=== PATIENT | female | born 1940 | race Two or more races ===

== ENCOUNTER 2025-02-01 17:36 | Inpatient (IN) | payer OTHER ==
[~2025-02-01] VITALS: Ht 149.9 cm; Wt 73.0 kg
[2025-02-01 18:47] LABS: Hematocrit 37.3 % (36.0-46.0); Hemoglobin 11.8 g/dL (12.2-16.2); Mean Corpuscular Hemoglobin 28.8 pg (28.0-32.0); Mean Corpuscular Volume 91.4 fL (80.0-100.0); Nucleated Red Blood Cells % 0.0 %
[2025-02-01 18:58] LABS: Chloride 101 mmol/L (98-107); Potassium 4.2 mmol/L (3.5-5.1); Sodium 141 mmol/L (136-145)
[2025-02-01 18:59] LABS: Anion Gap 8 (5-15); Calcium 9.5 mg/dL (8.7-10.4)
[2025-02-01 19:01] LABS: Carbon Dioxide 32 mmol/L (20-31)
[2025-02-01 19:04] LABS: BUN/Creatinine Ratio 10.9 (10.0-20.0); Blood Urea Nitrogen 11 mg/dL (9-23)
[2025-02-01] MEDS: fentaNYL CITRATE 100 MCG/2 ML VL IV ONE (19:04)
[2025-02-01 19:07] LABS: Glucose 132 mg/dL (74-106)
--- NOTE | 2025-02-01 19:31 | ED.PDOC ---
History of Present Illness HPI Comments This patient is a pleasant 84-year-old female who arrives the ED today for evaluation of left leg pain concerns status post ground level fall. Patient was going to a wedding when her grand children were attempted to help her to the vehicle utilizing a walker at which time, the patient fell directly onto her knees. Per one of the granddaughters, they heard a pop. Patient has exquisite tenderness on the left lower femur that the patient states extends up into her pelvis. Patient has some mild internal rotation that is difficult to assess due to a slight flexion of the leg. Distal neurovascularly intact. Vital signs were stable. Patient is a on Eliquis due to a left arm DVT that occurred approximately seven years ago. Chief Complaint: Fall Injury Time Seen by MD: 18:10 Reviewed Notes: Nurses Notes, Medications, Allergies Allergies: Coded Allergies: Sulfa Antibiotics (Verified Allergy, Unknown, 02/01/25) Information Source: Patient Mode of Arrival: Wheelchair Severity: Moderate Timing: Hours Duration: Since onset Prehospital treatment: None Past Medical History PAST MEDICAL HISTORY: Denies Surgical History: Denies all surgeries Family History Family History: Unknown Social History Smoker: Non-Smoker Alcohol: Denies ETOH Use Drugs: Denies Drug Use Lives In: Home, Assisted Care Constitutional: denies: chills, diaphoresis, fatigue, fever, malaise, sweats, weakness, others EENTM: denies: blurred vision, double vision, ear bleeding, ear discharge, ear drainage, ear pain, ear ringing, eye pain, eye redness, hearing loss, mouth pain, mouth swelling, nasal discharge, nose bleeding, nose congestion, nose pain, photophobia, tearing, throat pain, throat swelling, voice changes, others Respiratory: denies: cough, hemoptysis, orthopnea, SOB at rest, shortness of breath, SOB with excertion, stridor, wheezing, others Cardiovascular: denies: chest pain, dizzy spells, diaphoresis, Dyspnea on exertion, edema, irregular heart beat, left arm pain, lightheadedness, palpitations, PND, syncope, others Gastrointestinal: denies: abdomen distended, abdominal pain, blood streaked bowels, constipated, diarrhea, dysphagia, difficulty swallowing, hematemesis, melena, nausea, poor appetite, poor fluid intake, rectal bleeding, rectal pain, vomiting, others Genitourinary: denies: abnormal vagina bleeding, burning, dyspareunia, dysuria, flank pain, frequency, hematuria, incontinence, pain, , vagina discharge, urgency, others Neurological: denies: dizziness, fainting, headache, left sided numbness, left sided weakness, numbness, paresthesia, pre-existing deficit, right sided numbness, right sided weakness, seizure, speech problems, tingling, tremors, weakness, others Musculoskeletal: reports: others (Left leg and pelvic pain concerns); denies: back pain, gout, joint pain, joint swelling, muscle pain, muscle stiffness, neck pain Integumetry: denies: bruises, change in color, change in hair/nails, dryness, laceration, lesions, lumps, rash, wounds, others Allergic/Immunocompromised: denies: Difficulty Healing, Frequent Infections, Hives, Itching, others Hematologic/Lymphatic: denies: anemia, blood clots, easy bleeding, easy bruising, swollen glands, others Endocrine: denies: excessive hunger, excessive sweating, excessive thirst, excessive urination, flushing, intolerance to cold, intolerance to heat, unexplained weight gain, unexplained weight loss, others Psychiatric: denies: anxiety, bipolar disorder, depression, hopeless, panic disorder, schizophrenia, sleepless, suicidal, others All Other Systems: Reviewed and Negative (Comprehensive review of systems are negative unless stated in HPI) Physical Exam General Appearance: Moderate Distress (Due to left knee and leg pain.), Obese HEENT: Normal ENT Inspection, Pharynx Normal, TMs Normal Neck: Full Range of Motion, Non-Tender, Normal, Normal Inspection Respiratory: Chest Non-Tender, Lungs Clear, No Accessory Muscle Use, No Respiratory Distress, Normal Breath Sounds Cardiovascular: No Edema, No JVD, No Murmur, No Gallop, Normal Peripheral Pulses, Regular Rate/Rhythm Breast Exam: Deferred Gastrointestinal: No Organomegaly, Non Tender, No Pulsatile Mass, Normal Bowel Sounds, Soft Genitalia: Deferred Pelvic: Deferred Rectal: Deferred Extremities: Other (Exquisite tenderness to palpation throughout the left lower femur region extending into the knee. Localized edema noted. No ecchymosis. No contusion noted to the knee. Pain extends up into the left hip and pelvic region. No ecchymosis noted. Significant reduced range of motion. Patient can not extend leg.) Neurologic: Alert Cerebellar Function: NOT DONE Reflexes: NOT DONE Skin: Dry, Normal Color, Warm Lymphatic: No Adenopathy Was a procedure done? Was a procedure done?: No Differential Dx Considerations may include: fracture, dislocation, sprain, contusion, among others X-Ray, Labs, Meds, VS Vital Signs Date Time Temp Pulse Resp B/P (MAP) Pulse Ox O2 Delivery O2 Flow Rate FiO2 02/01/25 21:00 58 12 120/63 (82) 98 02/01/25 20:00 96.7 59 12 98/34 (55) 98 96.7 02/01/25 20:00 59 12 98 Nasal Cannula* 2 28 02/01/25 19:01 97.6 64 17 88/46 (60) 100 97.6 02/01/25 18:56 97 Nasal Cannula* 2 28 02/01/25 17:38 97.0 51 18 100/59 100 97.0 Lab Test 02/01/25 20:15 02/01/25 18:27 Range/Units Troponin I High Sensitivity < 3 L < 3 L </=34 ng/L White Blood Count 11.1 H 4.4-10.8 10^3/uL Red Blood Count 4.08 4.0-5.20 10^6/uL Hemoglobin 11.8 L 12.2-16.2 g/dL Hematocrit 37.3 36.0-46.0 % Mean Corpuscular Volume 91.4 80.0-100.0 fL Mean Corpuscular Hemoglobin 28.8 28.0-32.0 pg Mean Corpuscular Hemoglobin Concent 31.5 L 32.0-36.0 g/dL Red Cell Distribution Width 14.1 11.8-14.3 % Platelet Count 283 140-450 10^3/uL Mean Platelet Volume 8.8 6.9-10.8 fL Neutrophils (%) (Auto) 65.9 37.0-80.0 % Lymphocytes (%) (Auto) 23.2 10.0-50.0 % Monocytes (%) (Auto) 8.6 0.0-12.0 % Eosinophils (%) (Auto) 1.7 0.0-7.0 % Basophils (%) (Auto) 0.6 0.0-2.0 % Neutrophils # (Auto) 7.3 1.6-8.6 10 ^3/uL Lymphocytes # (Auto) 2.6 0.4-5.4 10 ^3/uL Monocytes # (Auto) 1.0 0-1.3 10 ^3/uL Eosinophils # (Auto) 0.2 0-0.8 10 ^3/uL Basophils # (Auto) 0.1 0-0.2 10 ^3/uL Nucleated Red Blood Cells 0.0 % Sodium Level 141 136-145 mmol/L Potassium Level 4.2 3.5-5.1 mmol/L Chloride Level 101 98-107 mmol/L Carbon Dioxide Level 32 H 20-31 mmol/L Anion Gap 8 5-15 Blood Urea Nitrogen 11 9-23 mg/dL Creatinine 1.01 0.550-1.02 mg/dL Glomerular Filtration Rate Calc 55 >90 mL/min BUN/Creatinine Ratio 10.9 10.0-20.0 Serum Glucose 132 H 74-106 mg/dL Calcium Level 9.5 8.7-10.4 mg/dL B-Type Natriuretic Peptide 51.46 0-100 pg/mL X-Ray, Labs, Meds, VS Comment All studies performed the ED were evaluated by me personally. Serum studies were unremarkable for any systemic concerns. CT of the left lower extremity revealed a comminuted oblique distal femoral fracture. Patient will be admitted for orthopedic management. Dr. Gauthier has been notified of the patient admission via text with description of injury. He responded with a request for x-rays as well as preop chest x-ray, EKG and preop labs. Time of 1ST Reevaluation: 21:28 Reevaluation 1ST: Improved Consultation: PCP, Surgery Patient Education/Counseling: Diagnosis, Treatment Family Education/Counseling: Diagnosis, Treatment SEPSIS Sepsis Screen Date sepsis recognized/suspect: Feb 01, 2025 Time Sepsis recognized/suspect: 1741 Recent Procedure: No On Antibiotic Therapy: No Respiratory Rate >20: No Heart Rate >90: No Temp<36 C (96.8 F) or >38.3 C: No SBP <90 or MAP <65 mmHG: No New Acute Mental Status Change: No Is the patient on CPAP, BIPAP,: No Physician Orders Heplock Iv (02/01/25 ) Electrocardigram (02/01/25 18:10) Continuous Ekg Monitoring 08,12,16,20,00,04 (02/01/25 18:10) Left Lower Extremity W/O Con (02/01/25 18:10) Pelvis Wo Contrast (02/01/25 18:10) L Femur Xray (02/01/25 21:30) L Knee 3v Xray (02/01/25 21:30) Electrocardigram (02/01/25 21:30) Prothrombin Time W/ Inr (02/01/25 21:30) Type And Screen (02/01/25 21:30) Chest Portable (02/01/25 21:30) Vital Signs Date Time Temp Pulse Resp B/P (MAP) Pulse Ox O2 Delivery O2 Flow Rate FiO2 02/01/25 21:00 58 12 120/63 (82) 98 02/01/25 20:00 96.7 59 12 98/34 (55) 98 96.7 02/01/25 20:00 59 12 98 Nasal Cannula* 2 28 02/01/25 19:01 97.6 64 17 88/46 (60) 100 97.6 02/01/25 18:56 97 Nasal Cannula* 2 28 02/01/25 17:38 97.0 51 18 100/59 100 97.0 Laboratory Tests Test 02/01/25 18:27 White Blood Count 11.1 10^3/uL (4.4-10.8) H Departure 1 Departure Time of Disposition: 21:29 Impression: Primary Impression: Closed comminuted intra-articular fracture of distal end of femur Disposition: ADMITTED INPATIENT Condition: Fair Discharged With: Self, Relative Critical Care Note Critical Care Time?: No Stability Stability form required: No Heart Score Heart Score: Heart Score Response (Comments) Value History N/A 0 EKG N/A 0 Age N/A 0 Risk Factors N/A 0 Troponin N/A 0 Total 0 I personally scribed for MADAY ALLEN PAC ([email or web address]) on 02/01/25 at 19:31. Electronically submitted by Yovani Clark ([email or web address]). MADAY ALLEN PAC Feb 01, 2025 19:31
[2025-02-01 20:00] VITALS: PULSE 59; RESP 12; O2SAT 98
--- NOTE | 2025-02-01 20:18 | DVH ---
History: Fall/trauma with pain Comparison Study: None Technique: Multidetector spiral CT of the pelvis was performed from iliac crests to pubic symphysis. 100 cc of intravenous contrast was administered during this examination. Portal venous imaging was obtained. Axial, coronal and sagittal multiplanar reformats were performed by the technologist on a separate workstation. Radiation Dose : CT Dose: CTDI volume is 12.69 mGy. Dose-length product is 420.06 mGy*cm Findings: Visualized bowel: Small bowel and colon are normal in caliber and distribution. The appendix is not visualized; however, no secondary findings of acute appendicitis identified. Ascites: Absent Lymphadenopathy: No pelvic or mesenteric lymphadenopathy. Pelvis Wall and Mesentery: Unremarkable. Pelvic Organs: Colonic diverticulosis. Musculoskeletal: No aggressive focal bony lesions, acute fractures or dislocation. Bladder: Unremarkable IMPRESSION: No acute pelvic finding.
--- NOTE | 2025-02-01 20:40 | DVH ---
INDICATION: Fall/trauma, pain COMPARISON: CT PELVIS WO CONTRAST on DOS: 02/01/25 TECHNIQUE: CT of the left femur was performed without contrast. Volume transverse images were obtaine d and reconstructed in multiple planes using bone and soft tissue algorithms. Radiation Dose Information: CT Dose: CTDI volume is 15.59 mGy. Dose-length product is 791.81 mGy*cm FINDINGS: Left total knee arthroplasty with patellar resurfacing. Highly comminuted oblique periprosthetic distal femoral fracture with half shafts width medial displa cement of the distal fragment, half shafts width posterior displacement of the distal fragment, and m ild apex anterior angulation. No additional fracture seen. IMPRESSION: Comminuted oblique periprosthetic distal femoral fracture. All CT scans at this medical facility are performed using dose modulation techniques as appropriate t o a performed exam including the following: Automated exposure control was utilized; adjustment of th e MA and/or KV according to patient size; and use of iterative reconstruction technique.
[2025-02-01 22:16] LABS: INR 1.08 (0.9-1.15); Prothrombin Time 11.4 sec (9.3-11.8)
--- NOTE | 2025-02-01 22:31 | DVH ---
CHEST RADIOGRAPH REASON FOR EXAM: Preop x-ray COMPARISON: None TECHNIQUE: One view of the chest is provided FINDINGS: The cardiomediastinal silhouette is within normal limits for technique. There is aortic ath erosclerosis. There is no focal airspace disease. There is no significant pleural effusion. No acute bony abnormality is identified. IMPRESSION: No radiographic evidence of acute cardiopulmonary process.
[2025-02-01 22:32] VITALS: O2SAT 98
[2025-02-01 22:45] LABS: Magnesium 1.8 mg/dL (1.6-2.6)
[2025-02-01 22:46] LABS: Cholesterol 183.0 mg/dL (< 200); HDL Cholesterol 49.0 mg/dL (40-59)
--- NOTE | 2025-02-01 22:59 | DVH ---
CLINICAL INDICATION: Fall/trauma, pain TECHNIQUE: XYXY L FEMUR XRAY Comparison: XY L KNEE 3V XRAY on DOS: 02/01/25, CT LEFT LOWER EXTREMITY W/O CON on DOS: 02/01/25 FINDINGS/IMPRESSION: : There is no evidence of acute fracture or dislocation. Left total knee arthroplasty with patellar resurfacing. Mildly displaced oblique or spiral type distal femoral metadiaphyseal fracture with a half shaft's wi th medial displacement of the distal fragments, half shaft with posterior displacement of the distal fragment, and mild apex anterior angulation.
--- NOTE | 2025-02-01 22:59 | DVH ---
CLINICAL INDICATION: Fall/trauma, pain. TECHNIQUE: XYXY L KNEE 3V XRAY Comparison: XY L FEMUR XRAY on DOS: 02/01/25, CT LEFT LOWER EXTREMITY W/O CON on DOS: 02/01/25 FINDINGS/IMPRESSION: : Left total knee arthroplasty with patellar resurfacing. Again noted is an oblique displaced periprosthetic distal femoral fracture.
[2025-02-01 23:03] LABS: Triglycerides 176.0 mg/dL (< 150)
[2025-02-01 23:47] LABS: INR 1.09 (0.9-1.15); Partial Thromboplastin Time 25.7 SEC (24.5-34.5); Prothrombin Time 11.5 sec (9.3-11.8)
[2025-02-02] VITALS (9 sets, daily range): BP systolic 109–144; BP diastolic 16–78; PULSE 78–104; RESP 16–20; TEMP 97.7–98.4; O2SAT 91–99
[2025-02-02] MEDS ORDERED: ACETAMINOPHEN 325 MG TAB PO PRN (00:15)
[2025-02-02] MEDS ORDERED: ONDANSETRON HCL 4 MG/2 ML VIAL IV PRN (00:15)
--- NOTE | 2025-02-02 00:19 | DVHHPRES ---
History of Present Illness Resident Creating Document: DULCE RODRIGUES RESIDENT History of Present Illness Jana Padilla is a 84-year-old female patient who presents to the ED with chief complaint of mechanical fall with no loss of consciousness and no head trauma, only secondary to bilateral lower limb weakness. Per patient she fell on her leg twisted the left knee and was not able to bear weight after fall. Patient has inability to bear weight prompted her visit to the ED. denies any other associated symptom. 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 Denies current tobacco, alcohol and other drug abuse. Allergies: Sulfas and ciprofloxacin Home medication: Eliquis, metoprolol, hydrocodone, [id number] mcg p.o. daily, Ropinirole, donepezil, aspirin Patient seen and examined at bedside. Currently has no new complaints. We will admit to telemetry for further evaluation Past Medical History Per HPI Past Surgical History Per HPI Family History Per HPI Past Social History Per HPI Review of Systems Review of Systems Per HPI Allergies: Coded Allergies: Sulfa Antibiotics (Verified Allergy, Unknown, 02/01/25) Medications Current Medications Medications Dose Ordered Sig/Carly Route Start Time Stop Time Status Last Admin Dose Admin Enoxaparin Sodium 70 mg Q12HR SC 02/02/25 10:00 UNV Patient Own Medication 1 DAILY PO 02/02/25 10:00 UNV Donepezil HCl 10 mg HS PO 02/02/25 22:00 UNV Exam Vital Signs Vital Signs Date Time Temp Pulse Resp B/P (MAP) Pulse Ox O2 Delivery O2 Flow Rate FiO2 02/01/25 23:00 59 12 114/48 (70) 98 02/01/25 20:00 96.7 96.7 02/01/25 20:00 Nasal Cannula* 2 28 Exam Patient lying in bed, in no acute distress General: Lucid, afebrile, mucosae are moist, pale skin and conjunctivae. Cardiovascular: Normal S1 and S2. No murmurs, gallops or rubs Respiratory: Normal ventilation mechanics. Clear lung sounds on auscultation Abdomen: Soft, nontender, no organomegaly, normal bowel sounds MSK/skin: Mobilizes 4 limbs, presents pain when moving left lower limb, but sensation and motor function is conserved. Skin is dry and warm Neurological: Oriented in 3 spheres. No motor no sensitive deficits. Pupils are isocoric and reactive Labs/Xrays Labs Test 02/01/25 23:19 02/01/25 20:15 02/01/25 18:27 Range/Units Prothrombin Time 11.5 9.3-11.8 sec Prothrombin Time INR 1.09 0.9-1.15 Activated Partial Thromboplast Time 25.7 24.5-34.5 SEC Troponin I High Sensitivity < 3 L </=34 ng/L White Blood Count 11.1 H 4.4-10.8 10^3/uL Red Blood Count 4.08 4.0-5.20 10^6/uL Hemoglobin 11.8 L 12.2-16.2 g/dL Hematocrit 37.3 36.0-46.0 % Mean Corpuscular Volume 91.4 80.0-100.0 fL Mean Corpuscular Hemoglobin 28.8 28.0-32.0 pg Mean Corpuscular Hemoglobin Concent 31.5 L 32.0-36.0 g/dL Red Cell Distribution Width 14.1 11.8-14.3 % Platelet Count 283 140-450 10^3/uL Mean Platelet Volume 8.8 6.9-10.8 fL Neutrophils (%) (Auto) 65.9 37.0-80.0 % Lymphocytes (%) (Auto) 23.2 10.0-50.0 % Monocytes (%) (Auto) 8.6 0.0-12.0 % Eosinophils (%) (Auto) 1.7 0.0-7.0 % Basophils (%) (Auto) 0.6 0.0-2.0 % Neutrophils # (Auto) 7.3 1.6-8.6 10 ^3/uL Lymphocytes # (Auto) 2.6 0.4-5.4 10 ^3/uL Monocytes # (Auto) 1.0 0-1.3 10 ^3/uL Eosinophils # (Auto) 0.2 0-0.8 10 ^3/uL Basophils # (Auto) 0.1 0-0.2 10 ^3/uL Nucleated Red Blood Cells 0.0 % Sodium Level 141 136-145 mmol/L Potassium Level 4.2 3.5-5.1 mmol/L Chloride Level 101 98-107 mmol/L Carbon Dioxide Level 32 H 20-31 mmol/L Anion Gap 8 5-15 Blood Urea Nitrogen 11 9-23 mg/dL Creatinine 1.01 0.550-1.02 mg/dL Glomerular Filtration Rate Calc 55 >90 mL/min BUN/Creatinine Ratio 10.9 10.0-20.0 Serum Glucose 132 H 74-106 mg/dL Hemoglobin A1c 5.0 <5.7 % A1C Calcium Level 9.5 8.7-10.4 mg/dL Phosphorus Level 2.8 2.4-5.1 mg/dL Magnesium Level 1.8 1.6-2.6 mg/dL B-Type Natriuretic Peptide 51.46 0-100 pg/mL Triglycerides Level 176 H < 150 mg/dL Cholesterol Level 183 < 200 mg/dL LDL Cholesterol 107 H < 100 mg/dL HDL Cholesterol 49 40-59 mg/dL Thyroid Stimulating Hormone (TSH) 0.26 L 0.55-4.78 uIU/mL SEPSIS Sepsis Screen Date sepsis recognized/suspect: Feb 01, 2025 Time Sepsis recognized/suspect: 1999 Recent Procedure: No On Antibiotic Therapy: No Respiratory Rate >20: No Heart Rate >90: No Temp<36 C (96.8 F) or >38.3 C: No SBP <90 or MAP <65 mmHG: Yes New Acute Mental Status Change: No Is the patient on CPAP, BIPAP,: No Physician Orders Heplock Iv (02/01/25 ) Electrocardigram (02/01/25 18:10) Continuous Ekg Monitoring 08,12,16,20,00,04 (02/01/25 18:10) Left Lower Extremity W/O Con (02/01/25 18:10) Pelvis Wo Contrast (02/01/25 18:10) L Femur Xray (02/01/25 21:30) L Knee 3v Xray (02/01/25 21:30) Electrocardigram (02/01/25 21:30) Type And Screen (02/01/25 21:30) Chest Portable (02/01/25 21:30) Obtain Consent For: (02/01/25 21:43) Obtain Consent For Anesthesia (02/01/25 21:43) Complete Blood Count (02/02/25 04:00) Basic Metabolic Panel (02/02/25 04:00) Vitamin D, 25-Hydroxy (02/01/25 21:41) Vitamin B12 (02/01/25 21:41) Urinalysis (02/01/25 21:41) Drug Screen (02/01/25 21:41) * Orthopedic Consult (02/01/25 23:45) Npo Except Ice Chips (02/01/25 23:45) Npo (Nothing By Mouth) Diet (02/01/25 Breakfast) Enoxaparin Sodium (Lovenox) (02/02/25 10:00) Patients Own Medication (02/02/25 10:00) Donepezil Tablet (Aricept Tablet) (02/02/25 22:00) Hepatic Panel (02/02/25 00:01) Admit (02/02/25 00:01) Code Status (02/02/25 00:01) Acetaminophen Tablet (Tylenol Tablet) (02/02/25 00:15) Ondansetron Hcl (Zofran) (02/02/25 00:15) Echo 2d Mode Cardiac Dop (02/02/25 00:01) Oxygen By Nasal Cannula (02/02/25 00:01) Stat Ekg For Chest Pain (02/02/25 00:01) Notify Of Changes From Base (02/02/25 00:01) Concrete Paver For 24 Hours (02/02/25 00:01) Emergency Dysrhythmia Protocol (02/02/25 00:01) Rhythm Strips Once Every Shift (02/02/25 00:01) Vital Signs Date Time Temp Pulse Resp B/P (MAP) Pulse Ox O2 Delivery O2 Flow Rate FiO2 02/01/25 23:00 59 12 114/48 (70) 98 02/01/25 22:00 55 12 114/35 (61) 95 02/01/25 21:00 58 12 120/63 (82) 98 02/01/25 20:00 96.7 59 12 98/34 (55) 98 96.7 02/01/25 20:00 59 12 98 Nasal Cannula* 2 28 02/01/25 19:01 97.6 64 17 88/46 (60) 100 97.6 02/01/25 18:56 97 Nasal Cannula* 2 28 02/01/25 17:38 97.0 51 18 100/59 100 97.0 Laboratory Tests Test 02/01/25 18:27 White Blood Count 11.1 10^3/uL (4.4-10.8) H Assessment/Plan Assessment/Plan ASSESSMENT Comminute distal femoral fracture Mechanical fall with no loss of consciousness Rule out cardiogenic presyncope Complicated UTI Ruled out pelvic fracture Paroxysmal atrial fibrillation (chads Vasc 5) secondary hypercoagulability state History of left upper limb DVT currently on Eliquis Chronic hypoxic respiratory failure 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 Discontinued metoprolol at this time Ordered echocardiogram Completed CT of pelvis and left lower limb which shows comminute oblique periprosthetic distal femoral fracture, no acute pelvic findings Consulted hub inventory specialist to evaluate the patient Optimize pain medication TSH was elevated, ordered free T4 and total T3. for now hold levothyroxine medication. Continue with ropinirole (POM) Patient is NPO, awaiting Orthopedics evaluation. Due to paroxysmal atrial fibrillation and history of DVT, patient is on therapeutic enoxaparin during admission. Discontinued apixaban. Obtain urine analysis which is compatible with UTI. Currently on empiric IV a ntibiotic (ceftriaxone). Ordered urine culture Goals of care discussed with patient for over 18 minutes: Full code status Discussed plan with Dr. Donahue, patient, family and nurses: We will admit patient to telemetry, ordered echocardiogram for preop clearance and to rule out cardiogenic causes of presyncope. Consulted Orthopedics, awaiting evaluation. Plan discussed with: Patient, Daughter, Son, Other (Nurses) My Orders Orders - DULCE RODRIGUES RESIDENT Procedure Category Date Status Time Complete Blood Count LAB 02/02/25 Transmitted 04:00 Basic Metabolic Panel LAB 02/02/25 Transmitted 04:00 Vitamin D, 25-Hydroxy LAB 02/01/25 In Process 21:41 Vitamin B12 LAB 02/01/25 In Process 21:41 Urinalysis LAB 02/01/25 Logged 21:41 Drug Screen LAB 02/01/25 Logged 21:41 * Orthopedic Consult CONS 02/01/25 Transmitted 23:45 Npo Except Ice Chips [facility] 02/01/25 In Process 23:45 Npo (Nothing By DIET 02/01/25 Transmitted Mouth) Diet Breakfast Enoxaparin Sodium [facility] 02/02/25 Logged (Lovenox) 10:00 Patients Own PHA 02/02/25 Logged Medication 10:00 Donepezil Tablet [facility] 02/02/25 Logged (Aricept Tablet) 22:00 Hepatic Panel LAB 02/02/25 Transmitted 00:01 Admit ADMIT 02/02/25 Transmitted 00:01 Code Status CODE 02/02/25 Transmitted 00:01 Acetaminophen Tablet [facility] 02/02/25 Transmitted (Tylenol Tablet) 00:15 Ondansetron Hcl PHA 02/02/25 Transmitted (Zofran) 00:15 Echo 2d Mode Cardiac US 02/02/25 Transmitted DOP 00:01 Oxygen By Nasal RT 02/02/25 Transmitted Cannula 00:01 Stat Ekg For Chest [facility] 02/02/25 Verified Pain 00:01 Notify Of Changes [facility] 02/02/25 Verified From Base 00:01 Concrete Paver For [facility] 02/02/25 Verified 24 Hours 00:01 Emergency Dysrhythmia [facility] 02/02/25 Verified Protocol 00:01 Rhythm Strips Once [facility] 02/02/25 Verified Every Shift 00:01 Date of Service: Feb 02, 2025 Billing Provider: CHEPE DONAHUE MD Common Visit Codes: [id number] INP/OBS CARE (HIGH) Secondary Visit Codes: [id number] CARE PLAN 30 MINUTES DULCE RODRIGUES RESIDENT Feb 02, 2025 00:19
[2025-02-02 00:47] LABS: Urine Budding Yeast FEW /hpf (None Seen); Urine Protein, UAD 2+ (Negative); Urine WBC Clumps PRESENT /hpf (None Seen)
[2025-02-02 01:31] LABS: Amphetamine Screen, Urine Neg (NEGATIVE); Phencyclidine Screen, Urine Neg (NEGATIVE)
[2025-02-02 01:33] LABS: Alanine Aminotransferase 13 U/L (7-40); Alkaline Phosphatase 86 U/L (46-116)
[2025-02-02 01:34] LABS: Albumin 3.2 g/dL (3.2-4.8)
[2025-02-02 01:37] LABS: Bilirubin, Direct < 0.1 mg/dL (<0.3); Bilirubin, Total 0.2 mg/dL (0.2-1.0); Total Protein 5.4 g/dL (5.7-8.2)
[2025-02-02 01:37] LABS: Barbiturate Scree,Urine Neg (NEGATIVE); Benzodiazephine Screen, Urine Neg (NEGATIVE); Cannabinoid Screen, Urine Neg (NEGATIVE); Cocaine Screen, Urine Neg (NEGATIVE); Opiate Scree,Urine Pos (NEGATIVE)
[2025-02-02 04:54] LABS: Hematocrit 29.7 % (36.0-46.0); Hemoglobin 9.8 g/dL (12.2-16.2); Mean Corpuscular Hemoglobin 29.7 pg (28.0-32.0); Mean Corpuscular Volume 90.0 fL (80.0-100.0); Nucleated Red Blood Cells % 0.1 %
[2025-02-02 05:00] LABS: Chloride 100 mmol/L (98-107); Potassium 3.7 mmol/L (3.5-5.1); Sodium 141 mmol/L (136-145)
[2025-02-02 05:01] LABS: Anion Gap 8 (5-15); Calcium 9.0 mg/dL (8.7-10.4)
[2025-02-02 05:06] LABS: BUN/Creatinine Ratio 15.8 (10.0-20.0); Blood Urea Nitrogen 15 mg/dL (9-23); Glucose 104 mg/dL (74-106)
[2025-02-02 05:22] LABS: Carbon Dioxide 33 mmol/L (20-31)
[2025-02-02] MEDS ORDERED: APIX5TAB PO (07:35)
[2025-02-02] MEDS ORDERED: HYDR-4798 PO (07:35)
[2025-02-02] MEDS ORDERED: LEVO25TA6 PO (07:35)
[2025-02-02] MEDS ORDERED: PATIENTS OWN MEDICATION PO SCH (10:00)
[2025-02-02] MEDS: ROPINIROLE 1 MG PO SCH (10:00)
[2025-02-02] MEDS: HYDROmorphone HCL 2 MG/ML VL/or syr IV PRN (10:33)
[2025-02-02] MEDS: ENOXAPARIN SOD 80 MG/0.8ML SYRINGE SC SCH (10:35)
[2025-02-02] MEDS: PANTOPRAZOLE 40 MG/10 ML VIAL INJ IV SCH (10:43)
--- NOTE | 2025-02-02 14:42 | DVHPNRES ---
Progress Note Date Seen: Feb 02, 2025 Resident Creating Document: DIANNE WHITE RESIDENT Medical Necessity Reason Pt with a Central, PICC or Fol: No Subjective Review of Systems 84-year-old female patient who presents to the ED with chief complaint of mechanical fall with no loss of consciousness and no head trauma, only secondary to bilateral lower limb weakness. Per patient she fell on her leg twisted the left knee and was not able to bear weight after fall. Patient has inability to bear weight prompted her visit to the ED. denies any other associated symptom. 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 Denies current tobacco, alcohol and other drug abuse. Allergies: Sulfas and ciprofloxacin Home medication: Eliquis, metoprolol, hydrocodone, [id number] mcg p.o. daily, Ropinirole, donepezil, aspirin Patient seen and examined at bedside. Currently has no new complaints. We will admit to telemetry for further evaluation Past Medical History Per HPI Past Surgical History Per HPI Family History Per HPI Past Social History Per HPI The patient was seen and examined at bedside. Overnight events were reviewed. The patient reports having severe pain,"worse than a child ". The son was at bedside, who was concerned regarding the red urine in the catheter. All the questions were answered at bedside. The patient is scheduled for ORIF tomorrow. Objective vital signs Vital Sign Date Time Temp Pulse Resp B/P (MAP) Pulse Ox O2 Delivery O2 Flow Rate FiO2 02/02/25 12:54 98.3 80 16 109/71 (84) 96 98.3 02/02/25 08:00 Room Air* 0 21 medications Current Medications Medications Dose Ordered Sig/Carly Route Start Time Stop Time Status Last Admin Dose Admin Enoxaparin Sodium 70 mg Q12HR SC 02/02/25 10:00 02/02/25 10:35 70 MG Donepezil HCl 10 mg HS PO 02/02/25 22:00 Acetaminophen 325 mg Q4HP PRN PO 02/02/25 00:15 Ondansetron HCl 4 mg Q4HP PRN IV 02/02/25 00:15 Patient Own Medication 1 DAILY PO 02/02/25 10:00 Hydromorphone HCl 0.25 mg Q4HPRN PRN IV 02/02/25 09:00 02/02/25 10:33 0.25 MG Pantoprazole Sodium 40 mg DAILY IV 02/02/25 10:00 02/02/25 10:43 40 MG Ceftriaxone Sodium 50 ml @ 100 mls/hr DAILY@09 IV 02/03/25 09:00 Examination Pt is lying on bed General Appearance: Alert, Oriented X3, Cooperative, Mild distress HEENT: Atraumatic, Mucous membranes moist/pink Respiratory: Clear to auscultation, Normal air movement, No added sounds Cardiovascular: Regular rate, Normal S1, Normal S2, No murmurs Abdominal/ : Active bowel sounds, Soft, no distention, no tenderness Extremities: No edema, Normal pulses, No tenderness/swelling, severe left hip tenderness with the both legs at 45. Skin: No Significant rash, except past surgical scars Neuro: Normal speech, sensorimotor deficits none Psych/Mental Status: Mental status NL, Mood NL Nurse was there as care transition coordinator during examination laboratory and microbiology Laboratory Tests 02/02/25 03:18 Test 02/02/25 03:18 Range/Units Serum Glucose 104 74-106 mg/dL Labs and/or images reviewed: Labs reviewed by me, Image(s) reviewed by me Problem List/Assessment/Plan Problem List/Assessment/Plan Comminute distal femoral fracture Mechanical fall with no loss of consciousness Ruled out pelvic fracture Completed CT of pelvis and left lower limb which shows comminute oblique periprosthetic distal femoral fracture, no acute pelvic findings Diabetes consult was appreciated. The patient is scheduled for or if tomorrow at 9:00 a.m. by Continue pain management Patient will be NPO after midnight Complicated UTI IV ceftriaxone. Urine culture pending Rule out cardiogenic presyncope Paroxysmal atrial fibrillation (chads Vasc 5) secondary hypercoagulability state History of left upper limb DVT currently on Eliquis Patient is monitored on telemetry, EKG: Sinus bradycardia, discontinued metoprolol at this time. Echocardiogram: Completed, results pending Due to paroxysmal atrial fibrillation and history of DVT, patient is on therapeutic enoxaparin during admission. Discontinued apixaban. Chronic hypoxic respiratory failure Post-polio syndrome on home oxygen (4L/min) Continue 4 L oxygen Hyperglycemia HbA1c 5 Monitor glucose levels Hypercholesterolemia Counseled on lifestyle modification Hypothyroidism Vitiligo Restless leg syndrome Continue with ropinirole (POM) GI prophylaxis: Pantoprazole DVT prophylaxis:Lovenox Diet: Cardiac, NPO from midnight. Goals of care discussed with the patient for more than 27 minutes: Full code status Case discussed with Dr. Luevano, patient and RN Plan discussed with: Patient, Other (RN) My Orders My Orders Orders - DIANNE WHITE RESIDENT Procedure Category Date Status Time Cardiac DIET 02/02/25 Transmitted Diet-2gna,Lofat,Lochol Breakfast Date of Service: Feb 02, 2025 Billing Provider: XIMENA LUEVANO MD Common Visit Codes: [id number] INP/OBS CARE(HIGH) DIANNE WHITE RESIDENT Feb 02, 2025 14:42 XIMENA LUEVANO MD Feb 04, 2025 10:22
--- NOTE | 2025-02-02 15:19 | DVHSR ---
APPROVED REPORT EXAM: Two-dimensional and M-mode echocardiogram with Doppler and color Doppler. Blood Pressure: 144/78 mmHg INDICATION Pre-Op RISK FACTORS Height: 4'11", Weight: 150 DIMENSIONS LVDd (3.8-5.7cm)LA (2D)3.1 (1.9-4.0cm)Aortic Root3.0 (2.0-3.7cm) LVDs (2.5-4.0cm)LA (MM) (1.9-4.0cm)Aortic Cusp Exc1.4 (1.5-2.0cm) EF (%) 57.0 (55-70%)Rt. Atrium3.1 (1.9-4.0cm)Asc. Aorta cm Mitral Valve MitralMitral Stenosis E wave0.57m/sMV Mean GR.mmHg A wave0.95m/sMV Peak GR.mmHg E/A ratio0.62D MVAcm2 DECEL [id number] 1/2 Timems Aortic Valve Aortic ValveAortic Stenosis V11.26m/Yael Mean GR.5mmHg V21.71m/Yael Peak GR.12mmHg LVOT Diameter1.6 (1.8-2.4cm)Doppler AVA1.48cm2 Tricuspid Valve TR Velocity2.88m/s [id number] Other Information Quality : Technically LimitedRhythm : Technically limited study due to body habitus and patient position. Conclusion Study. Sinus rhythm. Off axis view. Mild concentric LVH. Septal hypertrophy. Valves are normal. Left ventricular function is preserved at 65% with normal RV function. Dopplers unremarkable. RVSP at 36 mmHg No pericardial effusion masses or vegetations.
[2025-02-02] MEDS: DONEPEZIL HYDROCHLORIDE 5 MG TAB PO SCH (21:53)
[2025-02-03] VITALS (10 sets, daily range): BP systolic 108–140; BP diastolic 55–87; PULSE 78–134; RESP 16–20; TEMP 97.6–98.6; O2SAT 92–100
[2025-02-03] MEDS ORDERED: DONE1TAB88 PO (05:11)
[2025-02-03] MEDS ORDERED: OMEP20TA PO (05:12)
[2025-02-03] MEDS ORDERED: APIX5TAB PO (05:12)
[2025-02-03] MEDS ORDERED: ROPI1TAB78 PO (05:13)
[2025-02-03] MEDS ORDERED: LEVO125T7 PO (05:15)
[2025-02-03] MEDS ORDERED: ASPI1TAB19 PO (05:15)
[2025-02-03] MEDS ORDERED: METO25TA5 PO (05:15)
[2025-02-03] MEDS ORDERED: GABA-1254 GT (05:15)
[2025-02-03 08:04] LABS: Hematocrit 28.3 % (36.0-46.0); Hemoglobin 9.3 g/dL (12.2-16.2); Mean Corpuscular Hemoglobin 29.9 pg (28.0-32.0); Mean Corpuscular Volume 90.6 fL (80.0-100.0); Nucleated Red Blood Cells % 0.1 %
[2025-02-03 08:11] LABS: Anion Gap 8 (5-15); Chloride 101 mmol/L (98-107); Potassium 4.3 mmol/L (3.5-5.1); Sodium 141 mmol/L (136-145)
[2025-02-03 08:17] LABS: Calcium 8.6 mg/dL (8.7-10.4); Carbon Dioxide 32 mmol/L (20-31)
[2025-02-03 08:18] LABS: BUN/Creatinine Ratio 16.0 (10.0-20.0); Blood Urea Nitrogen 13 mg/dL (9-23); Glucose 104 mg/dL (74-106)
[2025-02-03] MEDS ORDERED: LIDOCAINE 1% INJ PF 5ML AMP ONE (12:04)
[2025-02-03] MEDS ORDERED: PROPOFOL 10 MG/ML 20 ML IV ONE (12:04)
[2025-02-03] MEDS ORDERED: ONDANSETRON HCL 4 MG/2 ML VIAL ONE (12:04)
[2025-02-03] MEDS ORDERED: KETOROLAC TROMETH 30 MG/ML 1ML VIAL ONE (12:04)
[2025-02-03] MEDS ORDERED: GLYCOPYRROLATE 0.2 MG/ML 1ML VIAL ONE (12:04)
[2025-02-03] MEDS ORDERED: BUPIVACAINE/DEXTROSE MPF 0.75% 2 ML AMP IT ONE (12:47)
[2025-02-03] MEDS ORDERED: CELECOXIB 100 MG CAP PO ONE (13:15)
[2025-02-03] MEDS ORDERED: ACETAMINOPHEN IV 1000 MG/100ML (10MG/ML) IV ONE (13:15)
[2025-02-03] MEDS ORDERED: GABAPENTIN 300 MG CAP PO ONE (13:15)
[2025-02-03] MEDS ORDERED: ROPIVACAINE 0.5% (5MG/ML) 20ML AMPULE IJ ONE (13:28)
[2025-02-03] MEDS: ceFAZolin 2 GM/D5W50ml 50 ML IV ONE (13:46)
[2025-02-03] MEDS ORDERED: ESMOLOL HCL 10 ML IV ONE (14:08)
--- NOTE | 2025-02-03 15:09 | DVHOP2 ---
Discharge Orders Discharge Orders DISCHARGE WHEN CRITERIA MET DISCHARGE WHEN CRITERIA MET. Operative Rep- Outpatient Operative Report PRE-OP DIAGNOSIS: LEFT PERIPROSTHETIC DISTAL FEMUR FRACTURE POST-OP DIAGNOSIS: SAME [place] protocol followed: No ESTIMATED BLOOD LOSS: 25 CC PROCEDURE: OPEN REDUCTION INTERNAL FIXATION OF LEFT PERIPROSTHETIC DISTAL FEMUR FRACTURE STRESS RADIOGRAPHS OF THE LEFT KNEE FLUOROSCOPIC STRESS RADIOGRAPHS OF THE LEFT FEMUR FLUOROSCOPIC STRESS RADIOGRAPHS OF THE LEFT HIP FLUOROSCOPIC SURGEON/ROOM SERVICE FOOD SERVER: Raffaele lindsey ANESTHESIA: truss driver helper INFORMED CONSENT: Informed Consent: Discussed all inherent risks, complications, and alternatives treatments with the patient. Patient has agreed to proceed with the procedure. I have reviewed all pre-operative assessments including Labs, EKGs, and radiographic images that has been performed. Patient is an appropriate candidate for the outpatient surgical center procedure. THE PATIENT IS EDUCATED ON THE RISKS AND BENEFITS OF SURGICAL AND NONSURGICAL TREATMENT OF THE PATIENT HAS A PERIPROSTHETIC FRACTURE WHICH INVOLVES THE JOINT THE PATIENT HAS A CR FEMUR BASED ON THESE PARAMETERS THE PATIENT IS EDUCATED ON THE RISKS AND BENEFITS OF SURGICAL AND NONSURGICAL TREATMENT WE DID HAVE A DISCUSSION WITH THE PATIENT REGARDING A DISTAL FEMORAL REPLACEMENT WITH A WAS A 0 VERSUS OPEN REDUCTION INTERNAL FIXATION OF THE FRACTURE OF THE PATIENT IS AWARE OF THE RISKS WITH THE SURGICAL FIXATION OF THE LEFT DISTAL FEMUR THE PATIENT UNDERSTANDS THE GOAL OF THE OF THE LEFT DISTAL FEMUR BASED ON THESE PARAMETERS THE PATIENT UNDERSTANDS THE RISKS OF WITH SURGICAL PROCEDURE AND OPTED FOR SURGICAL FIXATION WITH A RETROGRADE NAILING OF THE PATIENT IS SEEN IN THE PREOPERATIVE HOLDING AREA OF THE LEFT LOWER EXTREMITY WAS MARKED THE PATIENT WAS BROUGHT TO OPERATIVE SUITE GENERAL ANESTHESIA WAS THEN INDUCED TIME-OUT TO HOSPITAL PROTOCOL THE LEFT LOWER EXTREMITY WAS PREPPED AND DRAPED IN THE STANDARD FASHION ANCEF WAS GIVEN FOR INFECTION PROPHYLAXIS TXA WAS GIVEN FOR BLEEDING PROPHYLAXIS A [id number] CLAMP WAS THEN USED WITH THE FRACTURE ON TRACTION REDUCTION CHECKING AP AND LATERAL X-RAY THERE WAS SIGNIFICANT COMMINUTION NOTED ON AN AP ONCE I WAS THEN NOTED THE OPENING GUIDEWIRE WAS CHECKED ON AN AP AND LATERAL X-RAY OF THE PATELLAR TENDON BEING SPLIT THE OPENING GUIDEWIRE WAS THEN PLACED ONCE IT WAS THEN DONE A THE GUIDE BALL-TIPPED GUIDEWIRE WITH TRACTION WITH A [id number] JULIA TONG CHECKING AP AND LATERAL X-RAY WITH TRACTION LENGTH REDUCTION IN AP AND LATERAL X-RAY WAS THEN APPROPRIATELY MEASURED A 12 X 340 MM NAIL WAS THEN PLACED IN THE APPROPRIATE POSITION ONCE I WAS THEN CHECKED WITH THE APPROPRIATE POSITION AND LOCATION OF THE NAIL IN THE APPROPRIATE MANNER AND POSITIONING THE 12 X 340 MM NAIL WAS THEN PLACED THEN 4 DISTAL SCREWS WERE THEN PLACED WITH A GUIDED TECHNIQUE IN THE APPROPRIATE MANNER TO GET MAXIMUM FIXATION WE DO REALIZE THAT THE SCREW THAT WAS GOING MEDIAL TO LATERAL AND THE OBLIQUE SCREW WAS SLIGHTLY LONGER HOWEVER THE PURCHASE WAS ADEQUATE AND I DID NOT WANT TO REMOVE THE PURCHASE LOSING FIXATION IN THE MANNER AND SPACE THEREFORE IT WAS LEFT IN THE APPROPRIATE POSITION 1 PROX IMAL INTERLOCK WITH A IN A PERFECT [facility] TECHNIQUE WAS THEN PLACED AP AND LATERAL X-RAY SHOWED FRACTURE REDUCTION TO BE ACCEPTABLE ALIGNMENT BASED ON THE SIGNIFICANT COMMINUTION STRESS RADIOGRAPHS OF THE LEFT KNEE SHOWED FRACTURE REDUCTION TO BE APPROPRIATE STRESS RADIOGRAPHS OF THE LEFT FEMUR SHOW OF THE FRACTURE ON THE LATERAL X-RAY TO BE APPROPRIATE WITH THE CHURCH OF THE POSTERIOR CORTEX A STRESS RADIOGRAPHS OF THE LEFT HIP DID NOT SHOW ANY INTRA- ARTICULAR FRACTURES OR FEMORAL NECK FRACTURE WAS APPROPRIATE FRACTURE LENGTH AND SCREW FIXATION WAS THEN NOTED ON THE PATIENT'S EYE WOUNDS WERE THEN IRRIGATED CUSTOMIZED SALINE AND THEN CLOSED WITH 0 VICRYL 2-0 VICRYL NAYE. THE PATIENT WILL BE NONWEIGHTBEARING ON THE LEFT LOWER EXTREMITY FULL RANGE OF MOTION OF THE KNEE THE PATIENT WILL FOLLOW UP IN APPROXIMATELY 2 WEEKS' TIME THE PATIENT CAN GO TOE-TOUCH WEIGHT-BEARING OF THE 6 WEEK MADAY PT OT OUT OF BED DAILY FOLLOW UP IN 2 WEEKS' TIME RAFFAELE CODY MD Feb 03, 2025 15:09
[2025-02-03] MEDS ORDERED: hydrALAZINE HCL 20 MG/ML VL IV PRN (15:45)
[2025-02-03] MEDS ORDERED: NALOXONE HCL 0.4 MG/ML VIAL IV PRN (15:45)
[2025-02-03] MEDS ORDERED: HYDROmorphone HCL 2 MG/ML VL/or syr IV PRN (15:45)
[2025-02-03] MEDS ORDERED: fentaNYL CITRATE 100 MCG/2 ML VL IV PRN (15:45)
[2025-02-03] MEDS ORDERED: ONDANSETRON HCL 4 MG/2 ML VIAL IV PRN (15:45)
[2025-02-03] MEDS ORDERED: FLUMAZENIL 0.1 MG/ML INJ 10ML MDV IV PRN (15:45)
--- NOTE | 2025-02-03 16:15 | DVHPNRES ---
Progress Note Date Seen: Feb 03, 2025 Resident Creating Document: REINALDO ARAUJO Medical Necessity Reason Pt with a Central, PICC or Fol: Yes The following are medically ne: Cervantes Catheter Subjective Review of Systems 84-year-old female patient who presents to the ED with chief complaint of mechanical fall with no loss of consciousness and no head trauma, only secondary to bilateral lower limb weakness. Per patient she fell on her leg twisted the left knee and was not able to bear weight after fall. Patient has inability to bear weight prompted her visit to the ED. denies any other associated symptom. 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 Denies current tobacco, alcohol and other drug abuse. Allergies: Sulfas and ciprofloxacin Home medication: Eliquis, metoprolol, hydrocodone, [id number] mcg p.o. daily, Ropinirole, donepezil, aspirin Patient seen at bedside. Patient is being transferred to OR for surgery. Review of Systems: HEENT:Normal, CVS:Normal, RESPIRATORY:Normal, GI:Normal, :Normal, MSK:Normal, NEURO:Normal Objective vital signs Vital Sign Date Time Temp Pulse Resp B/P (MAP) Pulse Ox O2 Delivery O2 Flow Rate FiO2 02/03/25 09:35 110 16 135/55 02/03/25 09:00 98.1 100 98.1 02/03/25 08:10 Room Air* 0 21 Total Intake and Output 02/02/25 02/02/25 02/03/25 15:00 23:00 07:00 Intake Total 50 ml 850 ml 300 ml Output Total 250 ml 200 ml Balance 50 ml 600 ml 100 ml medications Current Medications Medications Dose Ordered Sig/Carly Route Start Time Stop Time Status Last Admin Dose Admin Enoxaparin Sodium 70 mg Q12HR SC 02/02/25 10:00 02/02/25 10:35 70 MG Donepezil HCl 10 mg HS PO 02/02/25 22:00 02/02/25 21:53 10 MG Acetaminophen 325 mg Q4HP PRN PO 02/02/25 00:15 Ondansetron HCl 4 mg Q4HP PRN IV 02/02/25 00:15 Patient Own Medication 1 DAILY PO 02/02/25 10:00 Hydromorphone HCl 0.25 mg Q4HPRN PRN IV 02/02/25 09:00 02/03/25 09:35 0.25 MG Pantoprazole Sodium 40 mg DAILY IV 02/02/25 10:00 02/03/25 09:25 40 MG Cefazolin Sodium 50 ml @ 100 mls/hr Q8HR IV 02/03/25 14:00 Naloxone HCl 0.4 mg Q10M PRN IV 02/03/25 15:45 02/03/25 16:06 Hydralazine HCl 5 mg Q10M PRN IV 02/03/25 15:45 02/03/25 16:36 Ephedrine Sulfate 10 mg Q10M PRN IV 02/03/25 15:45 02/03/25 16:26 Hydromorphone HCl 0.5 mg Q10M PRN IV 02/03/25 15:45 02/03/25 16:26 Examination General Appearance: Alert, Oriented X3, Cooperative, No acute distress HEENT: Atraumatic, PERRLA, EOMI, Mucous membrane moist/pink Respiratory: Clear to auscultation, Normal air movement Cardiovascular: Regular rate, Normal S1, Normal S2, No murmurs, no chest wall tenderness Abdominal: Tenderness in left hip Extremities: No clubbing, No cyanosis, No edema, Normal pulses, No tenderness/swelling Skin: No rashes, No breakdown, No significant lesion Neuro: Normal gait, Normal speech, Strength at 5/5 X4 ext, Normal tone, Sensation intact, Cranial nerves 3-12 NL, Reflexes 2+ Psych/Mental Status: Mental status NL, Mood NL laboratory and microbiology Laboratory Tests 02/03/25 07:17 Test 02/03/25 07:17 Range/Units Serum Glucose 104 74-106 mg/dL Microbiology Date/Time Source Procedure Growth Status 02/01/25 23:59 Urine - Cervantes Port Urine Culture - Preliminary Resulted Problem List/Assessment/Plan Problem List/Assessment/Plan Communited distal femoral fracture Mechanical fall with no loss of consciousness Ruled out pelvic fracture Completed CT of pelvis and left lower limb which shows comminute oblique periprosthetic distal femoral fracture, no acute pelvic findings The patient is scheduled for surgery today by Continue pain management Complicated UTI IV ceftriaxone. Urine culture pending Rule out cardiogenic presyncope Paroxysmal atrial fibrillation (chads Vasc 5) secondary hypercoagulability state History of left upper limb DVT currently on Eliquis Patient is monitored on telemetry, EKG: Sinus bradycardia, discontinued metoprolol at this time. Due to paroxysmal atrial fibrillation and history of DVT, patient is on therapeutic enoxaparin during admission. Discontinued apixaban. Chronic hypoxic respiratory failure Post-polio syndrome on home oxygen (4L/min) Continue 4 L oxygen Hyperglycemia Dyslipidemia Counseled on lifestyle modification Hypothyroidism Vitiligo Restless leg syndrome Continue with ropinirole (POM) Plan discussed with Dr. Jennings Plan discussed with patient. Plan discussed with: Patient Date of Service: Feb 03, 2025 Billing Provider: MALINA JENNINGS MD Common Visit Codes: [id number] INP/OBS CARE(HIGH) REINALDO ARAUJO RESIDENT Feb 03, 2025 16:03 MALINA JENNINGS MD Feb 11, 2025 20:25
--- NOTE | 2025-02-03 18:56 | DVH ---
XY C ARM FLUOROSCOPY UP TO 60MIN INDICATION: ORIF LEFT DISTAL FEMUR TECHNIQUE: Intraoperative fluoroscopic images were obtained Total fluoroscopic time 1 minutes and 8 seconds COMPARISON: None FINDINGS: Successful intraoperative fluoroscopic guidance. IMPRESSION: 1. Successful intraoperative fluoroscopic guidance and please follow up with surgical report.
[2025-02-03] MEDS: ceFAZolin 1GM/50ML 50 ML IV SCH (21:12)
[2025-02-04] VITALS (7 sets, daily range): BP systolic 115–133; BP diastolic 52–82; PULSE 61–111; RESP 16–18; TEMP 97.5–98.1; O2SAT 65–98
[2025-02-04 07:02] LABS: Hematocrit 25.1 % (36.0-46.0); Hemoglobin 8.4 g/dL (12.2-16.2); Mean Corpuscular Hemoglobin 30.3 pg (28.0-32.0); Mean Corpuscular Volume 91.0 fL (80.0-100.0); Nucleated Red Blood Cells % 0.0 %
[2025-02-04 07:22] LABS: Alanine Aminotransferase 10 U/L (7-40); Albumin 3.1 g/dL (3.2-4.8); Alkaline Phosphatase 72 U/L (46-116); Anion Gap 8 (5-15); BUN/Creatinine Ratio 18.8 (10.0-20.0); Blood Urea Nitrogen 18 mg/dL (9-23); Calcium 8.4 mg/dL (8.7-10.4); Carbon Dioxide 31 mmol/L (20-31); Chloride 102 mmol/L (98-107); Glucose 153 mg/dL (74-106); Potassium 4.8 mmol/L (3.5-5.1); Sodium 141 mmol/L (136-145); Total Protein 5.3 g/dL (5.7-8.2)
[2025-02-04 07:33] LABS: Bilirubin, Total 0.3 mg/dL (0.2-1.0)
--- NOTE | 2025-02-04 08:13 | DVHPN2 ---
Progress Note Date Seen: Feb 04, 2025 Medical Necessity Reason Pt with a Central, PICC or Fol: Yes The following are medically ne: Cervantes Catheter Subjective Patient reports: No new complaints Objective vital signs Vital Sign Date Time Temp Pulse Resp B/P (MAP) Pulse Ox O2 Delivery O2 Flow Rate FiO2 02/04/25 05:00 98.0 108 17 117/66 (83) 97 98.0 02/03/25 20:00 Nasal Cannula* 2 28 Total Intake and Output 02/03/25 02/03/25 02/04/25 15:00 23:00 07:00 Intake Total 150 ml 150 ml 170 ml Output Total 200 ml 100 ml Balance 150 ml -50 ml 70 ml medications Current Medications Medications Dose Ordered Sig/Carly Route Start Time Stop Time Status Last Admin Dose Admin Enoxaparin Sodium 70 mg Q12HR SC 02/02/25 10:00 02/03/25 21:11 70 MG Donepezil HCl 10 mg HS PO 02/02/25 22:00 02/03/25 21:11 10 MG Acetaminophen 325 mg Q4HP PRN PO 02/02/25 00:15 Ondansetron HCl 4 mg Q4HP PRN IV 02/02/25 00:15 Patient Own Medication 1 DAILY PO 02/02/25 10:00 Hydromorphone HCl 0.25 mg Q4HPRN PRN IV 02/02/25 09:00 02/03/25 20:12 0.25 MG Pantoprazole Sodium 40 mg DAILY IV 02/02/25 10:00 02/03/25 09:25 40 MG Cefazolin Sodium 50 ml @ 100 mls/hr Q8HR IV 02/03/25 14:00 02/04/25 05:52 100 MLS/HR Examination: GENERAL:Normal, MSK:Abnormal laboratory and microbiology Laboratory Tests 02/04/25 06:29 Test 02/04/25 06:29 Range/Units Serum Glucose 153 H 74-106 mg/dL Microbiology Date/Time Source Procedure Growth Status 02/01/25 23:59 Urine - [facility] [place] Urine Culture - Preliminary Resulted Problem List/Assessment/Plan Problem List/Assessment/Plan 84 year old female who is s/p distal femur ORIF POD 1 1. Pain control 2. DVT ppx 3. Aquacel dressing to remain in place for 2 weeks 4. Physical therapy 5. NWB LLE 6. Plan for follow up in [address] Gauthier at [facility] ortho clinic 7. clear for discharge from orthopedic standpoint Plan discussed with: Patient My Orders My Orders Orders - ZAMZAM SPRAGUE NP Procedure Category Date Status Time Weight-Bearing JOSE 02/03/25 In Process Restrictions 12:16 Cardiac DIET 02/03/25 Transmitted Diet-2gna,Lofat,Lochol Lunch Cefazolin 1gm/50ml PHA 02/03/25 In Process (Ancef) 14:00 Date of Service: Feb 04, 2025 Billing Provider: GAB GAUTHIER MD Common Visit Codes: NOT BILLABLE ZAMZAM SPRAGUE NP Feb 04, 2025 08:13
--- NOTE | 2025-02-04 14:33 | DVHDSRES ---
Discharge Summary Date of Admission Resident Creating Document: REINALDO ARAUJO RESIDENT Feb 02, 2025 at 00:01 Date of Discharge: Feb 04, 2025 Labs/Diagnostic Data: Laboratory Results Test 02/04/25 06:29 02/01/25 23:59 02/01/25 23:19 02/01/25 20:15 White Blood Count 9.8 10^3/uL (4.4-10.8) Red Blood Count 2.76 10^6/uL (4.0-5.20) Hemoglobin 8.4 g/dL (12.2-16.2) Hematocrit 25.1 % (36.0-46.0) Mean Corpuscular Volume 91.0 fL (80.0-100.0) Mean Corpuscular Hemoglobin 30.3 pg (28.0-32.0) Mean Corpuscular Hemoglobin Concent 33.3 g/dL (32.0-36.0) Red Cell Distribution Width 14.3 % (11.8-14.3) Platelet Count 202 10^3/uL (140-450) Mean Platelet Volume 9.7 fL (6.9-10.8) Neutrophils (%) (Auto) 87.2 % (37.0-80.0) Lymphocytes (%) (Auto) 6.2 % (10.0-50.0) Monocytes (%) (Auto) 6.6 % (0.0-12.0) Eosinophils (%) (Auto) 0.0 % (0.0-7.0) Basophils (%) (Auto) 0.0 % (0.0-2.0) Neutrophils # (Auto) 8.6 10 ^3/uL (1.6-8.6) Lymphocytes # (Auto) 0.6 10 ^3/uL (0.4-5.4) Monocytes # (Auto) 0.6 10 ^3/uL (0-1.3) Eosinophils # (Auto) 0 10 ^3/uL (0-0.8) Basophils # (Auto) 0 10 ^3/uL (0-0.2) Nucleated Red Blood Cells 0.0 % Sodium Level 141 mmol/L (136-145) Potassium Level 4.8 mmol/L (3.5-5.1) Chloride Level 102 mmol/L (98-107) Carbon Dioxide Level 31 mmol/L (20-31) Anion Gap 8 (5-15) Blood Urea Nitrogen 18 mg/dL (9-23) Creatinine 0.96 mg/dL (0.550-1.02) Glomerular Filtration Rate Calc 58 mL/min (>90) BUN/Creatinine Ratio 18.8 (10.0-20.0) Serum Glucose 153 mg/dL (74-106) Calcium Level 8.4 mg/dL (8.7-10.4) Total Bilirubin 0.3 mg/dL (0.2-1.0) Aspartate Amino Transferase (AST) 24 U/L (13-40) Alanine Aminotransferase (ALT) 10 U/L (7-40) Alkaline Phosphatase 72 U/L (46-116) Total Protein 5.3 g/dL (5.7-8.2) Albumin 3.1 g/dL (3.2-4.8) Urine Color Brown (Yellow) Urine Clarity Ex.turbid (Clear) Urine pH 6.0 (5.0-9.0) Urine Specific [place] 1.026 (1.001-1.035) Urine Protein 2+ (Negative) Urine Ketones Negative (Negative) Urine Blood 3+ /uL (Negative) Urine Nitrite Negative (Negative) Urine Bilirubin Negative (Negative) Urine Urobilinogen Normal mg/dL (Negative) Urine Leukocyte Esterase 3+ /uL (Negative) Urine RBC 574 /hpf (0 - 4) Urine WBC Clumps Present /hpf (None Seen) Urine Microscopic WBC 216 /HPF (0-5) Urine Squamous Epithelial Cells Few /hpf (<5) Urine Bacteria None seen /hpf (None Seen) Urine Mucus Few (None Seen) Urine Yeast (Budding) Few /hpf (None Seen) Urine Glucose Normal mg/dL (Normal) Urine Opiates Screen Pos (NEGATIVE) Urine Fentanyl Screen Neg (NEGATIVE) Urine Barbiturates Screen Neg (NEGATIVE) Urine Phencyclidine Screen Neg (NEGATIVE) Urine Amphetamines Screen Neg (NEGATIVE) Urine Benzodiazepines Screen Neg (NEGATIVE) Urine Cocaine Screen Neg (NEGATIVE) Urine Cannabinoids Screen Neg (NEGATIVE) Prothrombin Time 11.5 sec (9.3-11.8) Prothrombin Time INR 1.09 (0.9-1.15) Activated Partial Thromboplast Time 25.7 SEC (24.5-34.5) Direct Bilirubin < 0.1 mg/dL (<0.3) Vitamin B12 Level 1225 pg/mL (211-911) Vitamin D 25-Hydroxy 124.2 ng/mL (30.0-100) Troponin I High Sensitivity < 3 ng/L (</=34) Test 02/01/25 18:27 Hemoglobin A1c 5.0 % A1C (<5.7) Phosphorus Level 2.8 mg/dL (2.4-5.1) Magnesium Level 1.8 mg/dL (1.6-2.6) B-Type Natriuretic Peptide 51.46 pg/mL (0-100) Triglycerides Level 176 mg/dL (< 150) Cholesterol Level 183 mg/dL (< 200) LDL Cholesterol 107 mg/dL (< 100) HDL Cholesterol 49 mg/dL (40-59) Thyroid Stimulating Hormone (TSH) 0.26 uIU/mL (0.55-4.78) Other Laboratory Tests 02/04/25 06:29 Brief Hx & Hospital Course: 84-year-old female patient who presents to the ED with chief complaint of mechanical fall with no loss of consciousness and no head trauma, only secondary to bilateral lower limb weakness. Per patient she fell on her leg twisted the left knee and was not able to bear weight after fall. Patient has inability to bear weight prompted her visit to the ED. denies any other associated symptom. Patient has deafness. Patient had surgery for the left distal femur fracture. She was treated with pain killers, Lovenox, Protonix. Patient was clinically better hence being discharged to half-way facility for continued care. 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 Medications: Lovenox 40 mg once daily SQ daily for 4 weeks Scheduled Apixaban Base (Eliquis), 5 MG PO ONCE, (Reported) Apixaban Base (Eliquis), 5 MG PO DAILY, (Reported) Aspirin (Aspirin), 81 MG PO DAILY, (Reported) Donepezil Hydrochloride (Donepezil Hcl), 10 MG PO DAILY, (Reported) Hydrocodone-Acetaminophen (Hydrocodone Bitartrate/AC 10-325 mg), 1 TAB PO Q6HP, (Reported) Levothyroxine Sodium (Levothyroxine Sodium), 1 TAB PO DAILY, (Reported) Levothyroxine Sodium (Levothyroxine Sodium), 125 MCG PO QAM, (Reported) Miscellaneous Medications Gabapentin (Neurontin Capsule), 300 MG GT, (Reported) Metoprolol Tartrate (Metoprolol Tartrate), 25 MG PO, (Reported) Omeprazole (Gnp Omeprazole), 20 MG PO, (Reported) Ropinirole Hydrochloride (Ropinirole Hcl), 1 MG PO, (Reported) Discharge Statement: "Patient was advised to return to the ER or call 911 if any headaches, dizziness, shortness of breath, chest pain, abdominal pain, bleeding, fevers, or worsening of medical condition. Patient was counseled about treatment plan, medications, possible side effects, patientverbalized understanding. All questions were answered to the best of my ability. This discharge took greater then 30 minutes in planning, reviewing documentation, counseling the patient, and discussing with other team members." ASSESSMENT ASSESSMENT Assessment Left distal femur fracture post mechanical fall Date of Service: Feb 04, 2025 Billing Provider: MALINA VICTORIA MD Common Visit Codes: 49946-XRK/OBS DISCH DAY >30min REINALDO ARAUJO RESIDENT Feb 04, 2025 14:33 MALINA VICTORIA MD Feb 11, 2025 20:26
== END 2025-02-04 18:22 | DRG 481 ==
LOC: ER 17:36 → OVERFLOW 02-02 00:01 → TELE-WESTW 02-02 05:36
PROVIDERS: ADMIT Internal Medicine Geriatric Medicine; ATTEND Internal Medicine Geriatric Medicine
PROC: 0QSC04Z Reposition Left Lower Femur with Internal Fixation Device, Open Approach (ICD-10-PCS; principal; 2025-02-03 13:41)
DX: S72.402A Unspecified fracture of lower end of left femur, initial encounter for closed fracture (principal); D68.69 Other thrombophilia; M97.12XA Periprosthetic fracture around internal prosthetic left knee joint, initial encounter; J96.11 Chronic respiratory failure with hypoxia; Z99.81 Dependence on supplemental oxygen; I48.0 Paroxysmal atrial fibrillation; G25.81 Restless legs syndrome; N39.0 Urinary tract infection, site not specified; G14 Postpolio syndrome; E03.9 Hypothyroidism, unspecified; E11.65 Type 2 diabetes mellitus with hyperglycemia; L80 Vitiligo; E78.5 Hyperlipidemia, unspecified; Z86.718 Personal history of other venous thrombosis and embolism; W18.30XA Fall on same level, unspecified, initial encounter; Z88.2 Allergy status to sulfonamides; Y93.89 Activity, other specified; Y92.89 Other specified places as the place of occurrence of the external cause; Y99.8 Other external cause status; Z86.73 Personal history of transient ischemic attack (TIA), and cerebral infarction without residual deficits; Z90.49 Acquired absence of other specified parts of digestive tract; Z90.710 Acquired absence of both cervix and uterus; Z88.1 Allergy status to other antibiotic agents; Z79.82 Long term (current) use of aspirin; Z79.899 Other long term (current) drug therapy
CPT/HCPCS: 36415; 71045; 72192; 73562; 73700; 76000; 80048; 80053; 80061; 80076; 80307; 81001; 82306; 82607; 83036; 83735; 83880; 84100; 84443; 84484; 85025; 85610; 85730; 86850; 86900; 86901; 87086; 87088; 87186; 93306; 97163; A4565; G0378; J0131; J1100; J1885; J2405; J2470; J2704

== ENCOUNTER 2025-02-14 18:34 | Emergency (ER) | payer OTHER ==
[~2025-02-14] VITALS: Ht 165.1 cm; Wt 77.5 kg
[~2025-02-14 18:34] MED LIST: APIX5TAB PO; ASPI1TAB19 PO; DONE1TAB88 PO; GABA-1254 GT; HYDR-4798 PO; LEVO125T7 PO; LEVO25TA6 PO; METO25TA5 PO; OMEP20TA PO; ROPI1TAB78 PO
--- NOTE | 2025-02-14 21:13 | DVH ---
CLINICAL INDICATION: Injury/pain TECHNIQUE: Intramedullary lizz in place in the left femur with total knee prosthesis in place. Multipl e darren are noted over the distal femur from an open reduction internal fixation. Comparison: XY L KNEE 3V XRAY on DOS: 02/01/25 FINDINGS/IMPRESSION: Patient is status post open reduction internal fixation of a distal femoral fracture. There is an int ramedullary lizz in place with total left knee prosthesis.
--- NOTE | 2025-02-14 21:15 | DVH ---
CLINICAL INDICATION: Injury/pain TECHNIQUE: 3 radiographic views of the left tibia and fibula. were obtained. Comparison: None FINDINGS/IMPRESSION: No acute fractures. Left knee prosthesis in place. Intramedullary lizz is noted throughout the left femur with normal bony alignment. The previously seen displaced fracture in the distal femur has been reduced.
--- NOTE | 2025-02-14 22:27 | ED.PDOC ---
Back pain HPI HPI Comments Brought in by ambulance due to left lower leg pain after a tray fell on it. States she recently had a femur surgery on her left leg. Chief Complaint: Lower Extremity Time Seen by MD: 19:10 Reviewed Notes: Nurses Notes, Medications, Allergies Allergies: Coded Allergies: Ciprofloxacin (Verified Allergy, Unknown, 02/03/25) Sulfa Antibiotics (Verified Allergy, Unknown, 02/01/25) Home Meds Reported Medications Gabapentin (NEURONTIN CAPSULE) 300 Mg Cp, 300 MG GT, CAP 02/03/25 Aspirin (Aspirin) 81 Mg Tab, 81 MG PO DAILY, TAB 02/03/25 Levothyroxine Sodium (Levothyroxine Sodium) 125 Mcg Tab, 125 MCG PO QAM for 30 Days, MCG 02/03/25 Metoprolol Tartrate (Metoprolol Tartrate) 25 Mg Tab, 25 MG PO for 30 Days, MG 02/03/25 Ropinirole Hydrochloride (Ropinirole Hcl) 1 Mg Tab, 1 MG PO, TAB 02/03/25 Omeprazole (Gnp Omeprazole) 20 Mg Tab, 20 MG PO, TAB 02/03/25 Apixaban Base (ELIQUIS) 5 Mg Tab, 5 MG PO DAILY, TAB 02/03/25 Donepezil Hydrochloride (DONEPEZIL HCL) 10 Mg Tab, 10 MG PO DAILY for 30 Days, MG 02/03/25 Levothyroxine Sodium (Levothyroxine Sodium) 25 Mcg Tab, 1 TAB PO DAILY, #30 TAB 5 Refills 02/02/25 Hydrocodone-Acetaminophen (Hydrocodone Bitartrate/AC 10-325 mg) 1 Tab Tab, 1 TAB PO Q6HP, TAB 02/02/25 Apixaban Base (ELIQUIS) 5 Mg Tab, 5 MG PO ONCE, TAB 02/02/25 Information Source: Patient Mode of Arrival: EMS Past Medical History PAST MEDICAL HISTORY: Denies Surgical History: Denies all surgeries PEANUT SEPARATOR History: No Pertinent PEANUT SEPARATOR History Family History Family History: Unknown Social History Smoker: Non-Smoker Alcohol: Denies ETOH Use Drugs: Denies Drug Use Lives In: Home, Assisted Care All Other Systems: Reviewed and Negative (see hpi) Physical Exam General Appearance: No Apparent Distress, Normal HEENT: Pharynx Normal Neck: Full Range of Motion, Non-Tender Respiratory: Accessory Muscle Use, Chest Non-Tender, Lungs Clear, No Respiratory Distress, Normal Breath Sounds Cardiovascular: No Edema, No JVD, No Murmur, No Gallop, Normal Peripheral Pulses, Regular Rate/Rhythm Breast Exam: Deferred Gastrointestinal: No Organomegaly, Non Tender, No Pulsatile Mass, Normal Bowel Sounds, Soft Genitalia: Deferred Pelvic: Deferred Rectal: Deferred Extremities: Decreased range of motion (IN KNEE BRACE), No calf tenderness, Normal capillary refill, Pedal edema (TRACE NON-PITTING ) Musculoskeletal : Location: Left Extremity Location: Leg (TENDERNESS ON PALPATION LEFT KNEE AND CRAIG NO NOTED ECCHYMOSIS OR ABRASIONS STRENGTH SENSORY MOTION INTACT POSITIVE PEDAL PULSE) Apperance: Normal Neurologic: Alert, 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 Was a procedure done?: No Back Pain Differential Dx Differential Diagnosis: Fracture, Musculoskeletal Pain X-Ray, Labs, Meds, VS Vital Signs Date Time Temp Pulse Resp B/P (MAP) Pulse Ox O2 Delivery O2 Flow Rate FiO2 02/15/25 03:25 97.9 91 18 142/78 (99) 99 97.9 02/15/25 03:25 Nasal Cannula* 4 36 02/14/25 18:40 98.4 87 16 122/76 100 98.4 Current Medications Medications (Trade) Dose Ordered Sig/Carly Route Start Time Stop Time Status Last Admin Tramadol HCl (Ultram) 50 mg ONCE ONCE PO 02/15/25 02:15 02/15/25 02:16 DC 02/15/25 03:24 X-Ray, Labs, Meds, VS Comment LEFT KNEE AND TIB-FIB SHOW NO ACUTE FRACTURES OSSEOUS LESIONS OR DISLOCATIONS. FEMUR HARDWARE IN PLACE. LIKELY CONTUSION. TRAMADOL 50 MG P.O. ORDERED FOR PAIN. PATIENT FROM SNF WE WILL REQUIRE TRANSPORT BACK PATIENT PLACED IN ED OPS PENDING TRANSFER. Time of 1ST Reevaluation: 19:40 Reevaluation 1ST: Unchanged Time of 2ND Reevaluation: 22:26 Reevaluation 2ND: Improved Patient Education/Counseling: Diagnosis, Treatment, Need For Follow Up Family Education/Counseling: No Family Present SEPSIS Sepsis Screen Date sepsis recognized/suspect: Feb 14, 2025 Time Sepsis recognized/suspect: 1831 Recent Procedure: No On Antibiotic Therapy: No Respiratory Rate >20: No Heart Rate >90: No Temp<36 C (96.8 F) or >38.3 C: No SBP <90 or MAP <65 mmHG: No New Acute Mental Status Change: No Is the patient on CPAP, BIPAP,: No Physician Orders L Knee 3v Xray (02/14/25 19:16) L Tib Fib Xray (02/14/25 19:16) Vital Signs Date Time Temp Pulse Resp B/P (MAP) Pulse Ox O2 Delivery O2 Flow Rate FiO2 02/15/25 03:25 97.9 91 18 142/78 (99) 99 97.9 02/15/25 03:25 Nasal Cannula* 4 36 02/14/25 18:40 98.4 87 16 122/76 100 98.4 Medications Medications Dose Ordered Sig/Carly Route Start Time Stop Time Status Last Admin Dose Admin Tramadol HCl 50 mg ONCE ONCE PO 02/15/25 02:15 02/15/25 02:16 DC 02/15/25 03:24 Departure 1 Departure Time of Disposition: 22:25 Impression: Primary Impression: Contusion, knee and lower leg Qualified Codes: S80.02XA - Contusion of left knee, initial encounter; S80.12XA - Contusion of left lower leg, initial encounter Disposition: [facility] Condition: Stable Discharged With: Self Critical Care Note Critical Care Time?: No Stability Stability form required: RAZ Tillman Feb 14, 2025 22:27
[2025-02-15 07:47] VITALS: BP 147/65; PULSE 92; RESP 22; TEMP 97.9; O2SAT 100
== END 2025-02-15 13:15 | disposition home or self-care (01) ==
LOC: EDBD 18:34 → EDUNIT# 18:34 → ER 18:40
DX: S80.12XA Contusion of left lower leg, initial encounter (principal); Z79.899 Other long term (current) drug therapy; Z96.652 Presence of left artificial knee joint; Z88.2 Allergy status to sulfonamides; Z79.890 Hormone replacement therapy; Z79.82 Long term (current) use of aspirin; Z79.01 Long term (current) use of anticoagulants; Z88.1 Allergy status to other antibiotic agents; X58.XXXA Exposure to other specified factors, initial encounter; Y93.89 Activity, other specified; Y92.89 Other specified places as the place of occurrence of the external cause; Y99.8 Other external cause status
CPT/HCPCS: 73562; 73590